=== PATIENT | male | born 1985 | race Caucasian/White ===

== ENCOUNTER 2024-09-28 20:04 | Emergency (ER) | payer MEDICAID ==
[~2024-09-28] VITALS: Ht 175.3 cm; Wt 72.7 kg
[2024-09-29] MEDS: acetaminophen 325mg tablet PO ONE (00:52)
[2024-09-29] MEDS: TETanus/Pertussis (Acell)/Diphther VAC/PF (Tdap-Adult) 0.5ml syringe IMVAC ONE (00:53)
[2024-09-29 01:02] VITALS: BP 130/82; PULSE 80; RESP 18; TEMP 98.6; O2SAT 99
== END 2024-09-29 01:03 | disposition home or self-care (01) ==
LOC: ER 20:05
DX: M25.562 Pain in left knee (principal)
CPT/HCPCS: 73564; 90471; 90715; 99283